=== PATIENT | female | born 1985 | race Caucasian/White ===

== ENCOUNTER 2016-11-09 00:22 | Emergency (ER) | payer OTHER ==
[~2016-11-09] VITALS: Ht 165.1 cm; Wt 61.2 kg
[2016-11-09 00:23] VITALS: BP 128/86
[2016-11-09] MEDS ORDERED: PROZAC10 MG PO (00:30)
[2016-11-09] MEDS ORDERED: PROZAC20 MG PO (00:30)
[2016-11-09] MEDS ORDERED: PREVACID30 MG PO (00:31)
== END 2016-11-09 01:03 | disposition home or self-care (01) ==
LOC: ER 00:22
DX: S63.591A Other specified sprain of right wrist, initial encounter (principal); Y04.2XXA Assault by strike against or bumped into by another person, initial encounter